=== PATIENT | male | born 1965 | race Caucasian/White ===

== ENCOUNTER → 2017-05-20 | Outpatient (CLI) | payer OTHER ==
--- NOTE | 2017-05-20 15:31 | RADIOLOGY REPORT PS360 ---
KNEE-LIMITED 2 VIEWS-RT HISTORY: HEALING OF RT KNEE FX healing fracture of right knee Patient Age: 52 years: Male Ordering Physician: Pete Moulton MD TECHNIQUE: AP lateral view right knee COMPARISON : 03/08/[address] of right knee 01/23/[address] that showed a fracture along the posterior aspect of the lateral tibial plateau to much much and subsequent plain films. Plain films we see appreciate the slight flattening blunted appearance here., Just superior and medial to the fibular head along posterior aspect of the lateral tibial plateau. Plain films appears stable. There is a small osseous density off the anterior tibial spine which appears similar and stable as well. Joint effusion persists effusion suprapatella bursa again noted and persists. IMPRESSION Healing fracture at the posterior aspect of the lateral tibial plateau appears unchanged on plain film. But was much better visualized on CT. Joint effusion persists
== END ==
LOC: RAD 09:38
DX: S82.141D Displaced bicondylar fracture of right tibia, subsequent encounter for closed fracture with routine healing (principal)